=== PATIENT | female | born 1945 | race Caucasian/White ===

== ENCOUNTER 2017-04-13 21:36 | Emergency (ER) | payer OTHER ==
[~2017-04-13] VITALS: Ht 167.6 cm; Wt 54.5 kg
[~2017-04-13 21:36] MED LIST: ATOR40TA49 PO; BENI20TA25 PO; GABA300C3 PO; GLYB1TAB51 PO; LANTUS2P SC; METF850T PO; SYNT88TA PO; TESS200C PO; ZITH250T PO; [UNRECOGNIZED DRUG - OTHER]
[2017-04-13 21:41] VITALS: BP 160/75; PULSE 98; RESP 18; TEMP 98.5; O2SAT 97
[2017-04-13] MEDS ORDERED: unable to obtain (21:54)
--- NOTE | 2017-04-13 22:24 | PD ---
HPI Chief Complaint: Diabetic Time Seen by Provider: 22:12 Travel History International Travel<30 days: No Contact w/Intl Traveler<30days: No Traveled to known affect area: No History of Present Illness HPI 71yo F with PMH of insulin dependent DM presents to the ED with c/o elevated blood glucose today. said she went to doctor 2 days ago and her glucose was in the 700s. Pt said she is compliant with her medication. EVAC was call because her conventions assistant was with her and she was sitting in the fireplace and did not look right. Denies any trauma, fever, chest pain, sob, n/ v, abdominal pain, focal weakness or numbness. PFSH Past Medical History High Cholesterol: Yes Dementia: Yes Diabetes: Yes Patient Takes Glucophage: No Diminished Hearing: No Hypertension: Yes Tetanus Vaccination: Unknown Influenza Vaccination: No ?: Not Menopausal: Yes Past Surgical History Section: Yes Tonsillectomy: Yes Social History Alcohol Use: No Tobacco Use: No Substance Use: No Allergies-Medications (Allergen,Severity, Reaction): Coded Allergies: No Known Allergies (Verified Adverse Reaction, Unknown, 04/13/17) Uncoded Allergies: NKA (Allergy, Unknown, 10/23/02) Reported Meds & Prescriptions Reported Meds & Active Scripts Active Bactrim DS (Sulfamethoxazole-Trimethoprim) 800-160 Mg Tab 1 Tab PO BID Reported [unable to obtain] [antera] Mg DAILY Review of Systems Except as stated in HPI: all other systems reviewed are Neg Physical Exam Narrative GENERAL: 71yo F not in distress. SKIN: Focused skin assessment warm/dry. HEAD: Atraumatic. Normocephalic. EYES: Pupils equal and round. No scleral icterus. No injection or drainage. ENT: No nasal bleeding or discharge. Mucous membranes pink and moist. NECK: Trachea midline. No JVD. CARDIOVASCULAR: Regular rate and rhythm. No murmur appreciated. RESPIRATORY: No accessory muscle use. Clear to auscultation. Breath sounds equal bilaterally. GASTROINTESTINAL: Abdomen soft, non-tender, nondistended. MUSCULOSKELETAL: No obvious deformities. No clubbing. No cyanosis. No edema. NEUROLOGICAL: Awake and alert. No obvious cranial nerve deficits. Motor grossly within normal limits. Normal speech. PSYCHIATRIC: Appropriate mood and affect; insight and judgment normal. Data Data Last Documented VS Vital Signs Date Time Temp Pulse Resp B/P (MAP) Pulse Ox O2 Delivery O2 Flow Rate FiO2 04/14/17 02:46 74 18 98 04/14/17 02:19 Room Air 04/13/17 21:41 98.5 Orders Orders Complete Blood Count With Diff (04/13/17 22:21) Basic Metabolic Panel (Bmp) (04/13/17 22:21) Blood Gas Venous (Vbg) (04/13/17 22:21) Electrocardiogram (04/13/17 ) Sodium Chlor 0.9% 1000 Ml Inj (Ns 1000 M (04/13/17 22:30) Beta Hydroxybutyrate (Acetone) (04/13/17 22:21) Urinalysis - C+S If Indicated (04/13/17 22:24) Urine Culture (04/13/17 22:50) Ceftriaxone Inj (Rocephin Inj) (04/13/17 23:30) Insulin Human Regular Inj (Novolin R Inj (04/13/17 23:30) Blood Glucose (04/14/17 00:00) Ct Abd/Pel W Iv Contrast(Rout) (04/14/17 ) Iohexol 350 Inj (Omnipaque 350 Inj) (04/14/17 00:43) Insulin Human Regular Inj (Novolin R Inj (04/14/17 02:00) Ed Discharge Order (04/14/17 02:04) Sulfamet-Trimeth Ds 800-160 Mg (Bactrim (04/14/17 02:15) Labs Laboratory Tests Test 04/13/17 22:40 04/13/17 22:50 Blood Gas Puncture Site RARM Blood Gas Patient Temperature 98.6 Venous Blood pH 7.41 Venous Blood Partial Pressure CO2 37 mmHg Venous Blood Partial Pressure O2 45 mmHg Venous Blood HCO3 23 mmol/L Venous Blood Oxygen Saturation 76 % Venous Blood Oxygen Content 14.0 Vol % Venous Blood Base Excess -1.0 mmol/L Blood Gas Inspired Oxygen 21 % White Blood Count 9.4 TH/MM3 Red Blood Count 4.53 MIL/MM3 Hemoglobin 13.3 GM/DL Hematocrit 38.8 % Mean Corpuscular Volume 85.6 FL Mean Corpuscular Hemoglobin 29.3 PG Mean Corpuscular Hemoglobin Concent 34.3 % Red Cell Distribution Width 13.2 % Platelet Count 234 TH/MM3 Mean Platelet Volume 8.4 FL Neutrophils (%) (Auto) 88.4 % Lymphocytes (%) (Auto) 5.8 % Monocytes (%) (Auto) 5.3 % Eosinophils (%) (Auto) 0.3 % Basophils (%) (Auto) 0.2 % Neutrophils # (Auto) 8.4 TH/MM3 Lymphocytes # (Auto) 0.5 TH/MM3 Monocytes # (Auto) 0.5 TH/MM3 Eosinophils # (Auto) 0.0 TH/MM3 Basophils # (Auto) 0.0 TH/MM3 CBC Comment DIFF FINAL Differential Comment Urine Color STRAW Urine Turbidity CLOUDY Urine pH 5.5 Urine Specific [place] 1.035 Urine Protein TRACE mg/dL Urine Glucose (UA) 100 mg/dL Urine Ketones 15 mg/dL Urine Occult Blood LARGE Urine Nitrite POS Urine Bilirubin NEG Urine Leukocyte Esterase SMALL Urine RBC 10-14 /hpf Urine WBC INNUM /hpf Urine Squamous Epithelial Cells 6-8 /hpf Urine Bacteria MANY /hpf Microscopic Urinalysis Comment CULTURE INDICATED Blood Urea Nitrogen 26 MG/DL Creatinine 0.66 MG/DL Random Glucose 470 MG/DL Calcium Level 8.4 MG/DL Sodium Level 133 MEQ/L Potassium Level 3.7 MEQ/L Chloride Level 99 MEQ/L Carbon Dioxide Level 23.4 MEQ/L Anion Gap 11 MEQ/L Estimat Glomerular Filtration Rate 89 ML/MIN B-Hydroxybutyrate 1.18 MMOL/L MDM Medical Decision Making Medical Screen Exam Complete: Yes Emergency Medical Condition: Yes Interpretation(s) EKG: Sinus tachycardia at 101bpm. Normal axis. No ST segment elevation or depression. Differential Diagnosis DKA vs. uncontrolled DM vs. UTI Narrative Course 71yo F with history of insulin dependent DM here with elevated blood glucose. Pt is at baseline mental status as per family and has no focal neurologic deficits. She denies any complaints. Labs reviewed, no leukocytosis. H/H normal. Glucose elevated at 470. No increased anion gap. BUN elevated at 26, pt given NS IVF. pH is 7.41. UA showed positive nitrite. Pt given ceftriaxone 1gm IV. Pt given 10 units of regular insulin. She is well appearing and tolerating PO. Will try outpatient treatment first. Return precautions given. As I was discharging patient, she complaints of abdominal pain that just started now. Pt has diffuse abdominal pain on exam. No rebound tenderness or guarding. CT a/p ordered. Sign out to next team to follow up and reevaluate. Diagnosis Primary Impression: UTI (urinary tract infection) Qualified Codes: N39.0 - Urinary tract infection, site not specified; R31.9 - Hematuria, unspecified Additional Impression: Blood glucose elevated Patient Instructions: General Instructions Departure Forms: Tests/Procedures Additional Instructions: Please follow up with your primary care physician in 2-3 days. Return to the ED if symptoms worsen. Med/Other Pt SpecificInfo: Prescription(s) given Scripts Sulfamethoxazole-Trimethoprim (Bactrim DS) 800-160 Mg Tab 1 TAB PO BID for Infection, #20 TAB 0 Refills Prov: Jenna Sinha DO 04/14/17 Jenna Sinha DO Apr 13, 2017 22:24
[2017-04-13] MEDS ORDERED: SODIUM CHLOR 0.9% 1000 ML INJ 1,000 ML IV ONE (22:30)
[2017-04-13 22:57] LABS: BILIRUBIN, URINE NEG (NEG); BLOOD, URINE LARGE (NEG); GLUCOSE,URINE 100 mg/dL (NEG); KETONE, URINE 15 mg/dL (NEG); NITRITE,URINE POS (NEG); PH, URINE 5.5 (5.0-8.5); URINE LEUKOCYTE ESTERASE SMALL (NEG)
[2017-04-13 23:01] LABS: AUTOMATED NEUTROPHIL # 8.4 TH/MM3 (1.8-7.7); BASOPHIL % 0.2 % (0.0-2.0); EOSINOPHIL % 0.3 % (0.0-4.0); HEMATOCRIT 38.8 % (35.0-46.0); HEMOGLOBIN 13.3 GM/DL (11.6-15.3); LYMPH % 5.8 % (9.0-44.0); LYMPHOCYTE # 0.5 TH/MM3 (1.0-4.8); MEAN CELL VOLUME 85.6 FL (80.0-100.0); MEAN CORPUSCULAR HEMOGLOBIN 29.3 PG (27.0-34.0); MEAN CORPUSCULAR HGB CONC 34.3 % (32.0-36.0); MEAN PLATELET VOLUME 8.4 FL (7.0-11.0); MONO % 5.3 % (0.0-8.0); MONOCYTE # 0.5 TH/MM3 (0-0.9); NEUT % 88.4 % (16.0-70.0); PLATELET COUNT 234 TH/MM3 (150-450); RED BLOOD COUNT 4.53 MIL/MM3 (4.00-5.30); RED CELL DISTRIBUTION WIDTH 13.2 % (11.6-17.2); WHITE BLOOD COUNT 9.4 TH/MM3 (4.0-11.0)
[2017-04-13 23:08] LABS: BACTERIA, URINE MANY /hpf; URINE COLOR STRAW (YELLW/STRAW); WBC, URINE INNUM /hpf (0-5)
[2017-04-13 23:12] LABS: BICARBONATE 23.4 MEQ/L (21.0-32.0); CALCIUM 8.4 MG/DL (8.5-10.1)
[2017-04-13 23:18] VITALS: BP 155/82; PULSE 100; RESP 18; O2SAT 98
[2017-04-13 23:20] LABS: CREATININE 0.66 MG/DL (0.50-1.00)
[2017-04-13] MEDS ORDERED: cefTRIAXone INJ 1,000 MG in SODIUM CHLORIDE 0.9% INJ 100 ML IV ONE (23:30)
[2017-04-13] MEDS ORDERED: INSULIN HUMAN REGULAR 1,000 UNITS/10 ML VIAL SQ ONE (23:30)
[2017-04-14] MEDS ORDERED: BACT800T5 PO
[2017-04-14] MEDS ORDERED: IOHEXOL 350 MG/ML 10 ML VIAL (for RAD DIAG) IVCONTRAST ONE (00:43)
--- NOTE | 2017-04-14 01:07 | RADRPT ---
EXAM DATE/TIME: 04/14/2017 00:20 [facility] COMPARISON: No previous studies available for comparison. INDICATIONS : Abdominal pain. Elevated blood glucose. IV CONTRAST: 75 cc Omnipaque 350 (iohexol) IV ORAL CONTRAST: No oral contrast ingested. RADIATION DOSE: 5.43 CTDIvol (mGy) MEDICAL HISTORY : Hypertension. Diabetes mellitus type 2. SURGICAL HISTORY : section. ENCOUNTER: Initial ACUITY: 1 day PAIN SCALE: 0/10 LOCATION: abdomen TECHNIQUE: Volumetric scanning of the abdomen and pelvis was performed. Using automated exposure control and ad justment of the mA and/or kV according to patient size, radiation dose was kept as low as reasonably achievable to obtain optimal diagnostic quality images. DICOM format image data is available electro nically for review and comparison. FINDINGS: LOWER LUNGS: The visualized lower lungs are clear. LIVER: Homogeneous density without lesion. There is no dilation of the biliary tree. SPLEEN: Normal size without lesion. PANCREAS: Within normal limits. KIDNEYS: Normal in size and shape. There is no mass, stone or hydronephrosis. ADRENAL GLANDS: Within normal limits. VASCULAR: There is no aortic aneurysm. BOWEL/MESENTERY: Mild to moderate sigmoid diverticulosis. Questionable subtle stranding adjacent to the mid sigmoid co tracy. Nonspecific fluid-filled nondilated loops of proximal jejunum. Appendix is not directly visualiz ed. No significant pericecal inflammatory change. ABDOMINAL WALL: Within normal limits. RETROPERITONEUM: There is no lymphadenopathy. BLADDER: No wall thickening or mass. REPRODUCTIVE: Within normal limits. INGUINAL: There is no lymphadenopathy or hernia. MUSCULOSKELETAL: Within normal limits for patient age. CONCLUSION: 1. Mild to moderate sigmoid diverticulosis with questionable subtle perisigmoid stranding. Findings m ay reflect mild/developing diverticulitis in the appropriate clinical setting. 2. Several fluid-filled nondilated loops of proximal jejunum. Although very nonspecific, findings may be seen with focal enteritis. 3. Appendix is not directly visualized. No significant pericecal inflammatory change. Chino Salazar MD on April 14, 2017 at 1:01 Board Certified Radiologist. This report was verified electronically.
[2017-04-14 01:22] VITALS: BP 151/84; PULSE 92; RESP 18; O2SAT 98
--- NOTE | 2017-04-14 01:54 | PD ---
Physical Exam Time Seen by Provider: 01:[address] Sinha left this patient with me to check the CT scan and make a disposition. It appears that the patient needs follow-up with a primary care physician to adjust her insulin. Data Data Last Documented VS Vital Signs Date Time Temp Pulse Resp B/P (MAP) Pulse Ox O2 Delivery O2 Flow Rate FiO2 04/14/17 01:22 92 18 151/84 (106) 98 Room Air 04/13/17 21:41 98.5 Orders Orders Complete Blood Count With Diff (04/13/17 22:21) Basic Metabolic Panel (Bmp) (04/13/17 22:21) Blood Gas Venous (Vbg) (04/13/17 22:21) Electrocardiogram (04/13/17 ) Sodium Chlor 0.9% 1000 Ml Inj (Ns 1000 M (04/13/17 22:30) Beta Hydroxybutyrate (Acetone) (04/13/17 22:21) Urinalysis - C+S If Indicated (04/13/17 22:24) Urine Culture (04/13/17 22:50) Ceftriaxone Inj (Rocephin Inj) (04/13/17 23:30) Insulin Human Regular Inj (Novolin R Inj (04/13/17 23:30) Blood Glucose (04/14/17 00:00) Ct Abd/Pel W Iv Contrast(Rout) (04/14/17 ) Iohexol 350 Inj (Omnipaque 350 Inj) (04/14/17 00:43) Insulin Human Regular Inj (Novolin R Inj (04/14/17 02:00) Labs Laboratory Tests Test 04/13/17 22:40 04/13/17 22:50 Blood Gas Puncture Site RARM Blood Gas Patient Temperature 98.6 Venous Blood pH 7.41 Venous Blood Partial Pressure CO2 37 mmHg Venous Blood Partial Pressure O2 45 mmHg Venous Blood HCO3 23 mmol/L Venous Blood Oxygen Saturation 76 % Venous Blood Oxygen Content 14.0 Vol % Venous Blood Base Excess -1.0 mmol/L Blood Gas Inspired Oxygen 21 % White Blood Count 9.4 TH/MM3 Red Blood Count 4.53 MIL/MM3 Hemoglobin 13.3 GM/DL Hematocrit 38.8 % Mean Corpuscular Volume 85.6 FL Mean Corpuscular Hemoglobin 29.3 PG Mean Corpuscular Hemoglobin Concent 34.3 % Red Cell Distribution Width 13.2 % Platelet Count 234 TH/MM3 Mean Platelet Volume 8.4 FL Neutrophils (%) (Auto) 88.4 % Lymphocytes (%) (Auto) 5.8 % Monocytes (%) (Auto) 5.3 % Eosinophils (%) (Auto) 0.3 % Basophils (%) (Auto) 0.2 % Neutrophils # (Auto) 8.4 TH/MM3 Lymphocytes # (Auto) 0.5 TH/MM3 Monocytes # (Auto) 0.5 TH/MM3 Eosinophils # (Auto) 0.0 TH/MM3 Basophils # (Auto) 0.0 TH/MM3 CBC Comment DIFF FINAL Differential Comment Urine Color STRAW Urine Turbidity CLOUDY Urine pH 5.5 Urine Specific [place] 1.035 Urine Protein TRACE mg/dL Urine Glucose (UA) 100 mg/dL Urine Ketones 15 mg/dL Urine Occult Blood LARGE Urine Nitrite POS Urine Bilirubin NEG Urine Leukocyte Esterase SMALL Urine RBC 10-14 /hpf Urine WBC INNUM /hpf Urine Squamous Epithelial Cells 6-8 /hpf Urine Bacteria MANY /hpf Microscopic Urinalysis Comment CULTURE INDICATED Blood Urea Nitrogen 26 MG/DL Creatinine 0.66 MG/DL Random Glucose 470 MG/DL Calcium Level 8.4 MG/DL Sodium Level 133 MEQ/L Potassium Level 3.7 MEQ/L Chloride Level 99 MEQ/L Carbon Dioxide Level 23.4 MEQ/L Anion Gap 11 MEQ/L Estimat Glomerular Filtration Rate 89 ML/MIN B-Hydroxybutyrate 1.18 MMOL/L [facility] Medical Record Reviewed: Yes Supervised Visit with DAVID: No Interpretation(s) The basic metabolic profile shows a sodium of 133, glucose of 470 and calcium of 8.4. The beta hydroxybutyrate is 1.18. The urine shows cloudy turbidity, large occult blood, trace protein, 15 ketones, 100 glucose with small leukocyte esterase and 10-14 red blood cells and innumerable white cells and culture is indicated. There are many bacteria in the urine. The CBC is normal except for 89% neutrophils. The CT abdomen/pelvis shows mild to moderate sigmoid diverticulosis with questionable subtle perisigmoid stranding. Findings may reflect a mild diverticulitis. There are several fluid-filled nondilated loops of the proximal jejunum. Differential Diagnosis Diabetes mellitus poor control, gastroparesis, urinary tract infection, electrolyte disorder, dehydration Narrative Course The patient has a urinary tract infection, diabetes mellitus poor control and mild dehydration. The patient will need to follow-up with her primary care physician later on today if possible. She was given 10 units of insulin IV and the blood sugar at 1:30 in the morning was 289. At 2:00 it was 277. Diagnosis Primary Impression: UTI (urinary tract infection) Qualified Codes: N39.0 - Urinary tract infection, site not specified; R31.9 - Hematuria, unspecified Additional Impression: Blood glucose elevated Patient Instructions: General Instructions Departure Forms: Tests/Procedures Additional Instruction: Please follow up with your primary care physician in 2-3 days. Return to the ED if symptoms worsen. Med/Other Pt SpecificInfo: Prescription(s) given Scripts Sulfamethoxazole-Trimethoprim (Bactrim DS) 800-160 Mg Tab 1 TAB PO BID for Infection, #20 TAB 0 Refills Prov: Jenna Sinha DO 04/14/17 Disposition: 01 DISCHARGE HOME Condition: Stable Donovan Mendes MD Apr 14, 2017 01:54
[2017-04-14] MEDS ORDERED: INSULIN HUMAN REGULAR 1,000 UNITS/10 ML VIAL IV PUSH ONE (02:00)
[2017-04-14] MEDS ORDERED: SULFAMETHOXAZOLE-TRIMETHOPRIM DS 800-160 MG TAB PO ONE (02:15)
[2017-04-14 02:19] VITALS: BP 144/70; PULSE 84; RESP 18; O2SAT 98
--- NOTE | 2017-04-14 11:14 | EKG ---
Date Performed: 04/13/2017 Time Performed: 22:33:56 PTAGE: 71 years EKG: SINUS TACHYCARDIA POSSIBLE LEFT ATRIAL ENLARGEMENT LOW QRS VOLTAGE IN PRECORDIAL LEADS ABNO RMAL RHYTHM ECG Since the prior tracing, there has been no significant change PREVIOUS TRACING : 05/19/2011 19.14 DOCTOR: Harjit Lamar Interpretating Date/Time 04/14/2017 11:11:08
== END 2017-04-14 02:47 | disposition home or self-care (01) ==
LOC: PHED 21:36
DX: E11.65 Type 2 diabetes mellitus with hyperglycemia (principal); N39.0 Urinary tract infection, site not specified; R31.9 Hematuria, unspecified; B96.20 Unspecified Escherichia coli [E. coli] as the cause of diseases classified elsewhere; I10 Essential (primary) hypertension; E78.00 Pure hypercholesterolemia, unspecified; F03.90 Unspecified dementia, unspecified severity, without behavioral disturbance, psychotic disturbance, mood disturbance, and anxiety; R00.0 Tachycardia, unspecified; Z79.4 Long term (current) use of insulin; Z79.899 Other long term (current) drug therapy
CPT/HCPCS: 74177; 80048; 81001; 82010; 82805; 85025; 87077; 87086; 87186; 93005; 96361; 96365; 96372; 96375; 99285; J0696; J1815; J7030; Q9967